=== PATIENT | male | born 1990 | race Asian ===

== ENCOUNTER 2021-02-04 16:41 | Emergency (ER) | payer MEDICAID ==
[~2021-02-04] VITALS: Ht 180.3 cm; Wt 106.4 kg
[2021-02-04 16:45] VITALS: BP 137/81
[2021-02-04] MEDS ORDERED: ONDANSETRON ODT 4 MG PO ONE (17:30)
[2021-02-04] MEDS ORDERED: OXYcodone/APAP 5/325MG TABLET PO ONE (17:30)
[2021-02-04] MEDS ORDERED: ONDANSETRON ODT 4 MG ONE (17:32)
[2021-02-04] MEDS ORDERED: OXYcodone/APAP 5/325MG TABLET ONE (17:33)
--- NOTE | 2021-02-04 17:47 | NUR ---
KELLI RN: ASSUMED CARE FOR MEDICATION AND DISCHARGE ONLY. PT SCREAMING AND CRYING, STATING, "IM IN SO MUCH PAIN". EXPLAINED IN DETAIL MEDICATION FOR PAIN AND DISCHARGE INSTRUCTIONS. INCREASE EMOTIONAL SUPPORT GIVEN. Patient given discharge instructions and they have confirmed that they understand the instructions. Patient ambulatory with steady gait. NAD, all questions answered appropriately, denies additional needs at this time. No personal belongings left in room after discharge.
== END 2021-02-04 17:55 | disposition home or self-care (01) ==
LOC: ED 17:20
DX: K02.9 Dental caries, unspecified (principal); K01.1 Impacted teeth
CPT/HCPCS: 99283; Q0162